=== PATIENT | male | born 1995 | race Caucasian/White ===

== ENCOUNTER 2022-04-05 08:28 | Emergency (ER) | payer OTHER ==
[2022-04-05 08:45] VITALS: BP 144/77
--- NOTE | 2022-04-05 09:13 | ED Physician Documentation ---
PD HPI ABD PAIN - Stated complaint Stated Complaint: ABD PX - Chief complaint Chief Complaint: Abd Pain - History obtained from History obtained from: Patient - Additional information Additional information: Otherwise healthy 26-year-old gentleman was awoken at 630 this morning by severe left lower quadrant pain radiating to the left testicle causing him to vomit several times. It lasted for about 2 hours and is now gone. He is never had this before. He feels completely better now without persistent nausea or pain. Review of Systems Constitutional: denies: Fever, Chills : reports: Hematuria. denies: Dysuria, Frequency, Hesitancy PD ED PE NORMAL - Vitals Vital signs reviewed: Yes - General General: Alert and oriented X 3, No acute distress - Abdomen Abdomen: Normal bowel sounds, Soft, Non tender - Back Back: No CVA TTP, No spinal TTP - Derm Derm: Normal color, Warm and dry - Extremities Extremities: No edema, No calf tenderness / cord - Neuro Neuro: Alert and oriented X 3, Normal speech Results - Vitals Vitals: Vital Signs - 24 hr 04/05/22 08:42 Temperature 36.0 C L Heart Rate 70 Respiratory 18 Rate Blood Pressure 144/77 H O2 Saturation 98 Oxygen O2 Source Room air - Labs Labs: Laboratory Tests 04/05/22 09:10 Urine Color BROWN Urine Clarity CLOUDY Urine pH 6.5 Ur Specific [place] 1.025 Urine Protein 30 H Urine Glucose (UA) NEGATIVE Urine Ketones NEGATIVE Urine Occult Blood LARGE H Urine Nitrite NEGATIVE Urine Bilirubin NEGATIVE Urine Urobilinogen 0.2 (NORMAL) Ur Leukocyte Esterase NEGATIVE Urine RBC TNTC H Urine WBC 4-5 Ur Squamous Epith Cells NONE SEEN Urine Bacteria Moderate H Ur Microscopic Review INDICATED Urine Culture Comments NOT INDICATED PD MEDICAL DECISION MAKING - ED course ED course: UA cup at bedside and has obvious hematuria although is not opaque. History is very consistent with resolved renal colic. CT considered but given resolution of pain probably not necessary. Departure - Departure Disposition: 01 Home, Self Care Clinical Impression: Renal colic Condition: Good Record reviewed to determine appropriate education?: Yes Instructions: ED Stone Renal W Colic Comments: You are seen today for pain that was very likely to have been renal colic/"kidney stone." Thankfully it is gone. Return if worse. Follow-up with your flight surgeon. If mild pain recurs, ibuprofen can be very effective for kidney stone pain.
[2022-04-05 09:19] LABS: BILIRUBIN,URINE NEGATIVE (NEGATIVE); GLUCOSE, URINE (UA) NEGATIVE (NEGATIVE); KETONES,URINE (UA) NEGATIVE (NEGATIVE); LEUKOCYTE ESTERASE, URINE NEGATIVE (NEGATIVE); NITRITE,URINE NEGATIVE (NEGATIVE); OCCULT BLOOD,URINE LARGE (NEGATIVE); PH,URINE 6.5 PH (5.0-7.5); PROTEIN,URINE 30 mg/dL (NEGATIVE); UROBILINOGEN,URINE 0.2 (NORMAL) E.U./dL (NORMAL)
[2022-04-05 09:23] LABS: CLARITY,URINE CLOUDY (CLEAR)
[2022-04-05 09:29] LABS: RBC,URINE TNTC /HPF (0-5)
[2022-04-05 09:30] LABS: BACTERIA,URINE Moderate /HPF (None Seen); SQUAMOUS EPITHELIAL CELL,UR NONE SEEN (<= Few)
== END 2022-04-05 10:33 | disposition home or self-care (01) ==
LOC: ED 08:28
DX: N23 Unspecified renal colic (principal); R31.0 Gross hematuria
CPT/HCPCS: 81001; 81003; 87086; 99282; 99283